=== PATIENT | female | born 1985 | race African-American/Black ===

== ENCOUNTER 2018-10-23 20:30 | Observation (INO) | payer MEDICAID ==
[~2018-10-23] VITALS: Ht 167.6 cm; Wt 74.8 kg
[2018-10-23] MEDS ORDERED: FERR325T23 GT (21:35)
[2018-10-23] MEDS ORDERED: ASPI-1159 PO (21:35)
[2018-10-23] MEDS ORDERED: VIT1TABL86 PO (21:35)
[2018-10-23] MEDS ORDERED: PNV1TABL50 PO (21:35)
== END 2018-10-23 22:00 | disposition home or self-care (01) ==
LOC: 8 EST LDRP 20:30
PROVIDERS: ADMIT Obstetrics & Gynecology; ATTEND Obstetrics & Gynecology
DX: O36.8390 Maternal care for abnormalities of the fetal heart rate or rhythm, unspecified trimester, not applicable or unspecified (principal); Z3A.37 37 weeks gestation of pregnancy
CPT/HCPCS: G0378

== ENCOUNTER 2018-10-26 11:48 | Observation (INO) | payer MEDICAID ==
[~2018-10-26] VITALS: Ht 167.6 cm; Wt 74.8 kg
[~2018-10-26 11:48] MED LIST: ASPI-1159 PO; FERR325T23 GT; PNV1TABL50 PO; VIT1TABL86 PO
== END 2018-10-26 14:25 | disposition home or self-care (01) ==
LOC: 8 EST LDRP 11:48
PROVIDERS: ADMIT Obstetrics & Gynecology; ATTEND Obstetrics & Gynecology
DX: O30.003 Twin pregnancy, unspecified number of placenta and unspecified number of amniotic sacs, third trimester (principal); Z3A.37 37 weeks gestation of pregnancy
CPT/HCPCS: 59025; 76815; 76818; 99281; G0378

== ENCOUNTER 2018-11-03 12:33 | Observation (INO) | payer MEDICAID ==
[2018-11-03] MEDS ORDERED: PREN1TAB78 MT (13:10)
== END 2018-11-03 15:30 | disposition home or self-care (01) ==
LOC: 8 EST LDRP 12:33
PROVIDERS: ADMIT Obstetrics & Gynecology; ATTEND Obstetrics & Gynecology
DX: O30.003 Twin pregnancy, unspecified number of placenta and unspecified number of amniotic sacs, third trimester (principal); Z3A.37 37 weeks gestation of pregnancy
CPT/HCPCS: 59025; 76805; 76810; 76815; 76818; G0378

== ENCOUNTER 2018-11-12 14:34 | Emergency (ER) | payer SELFPAY ==
[~2018-11-12] VITALS: Ht 167.6 cm; Wt 59.0 kg
[2018-11-12] MEDS ORDERED: LABETALOL 5MG/ML SYR 20 MG/4 ML SYRINGE IV ONE (17:00)
[2018-11-12] MEDS ORDERED: LABETALOL HCL 100MG TABLET PO ONE (17:00)
[2018-11-12 18:28] LABS: CLARITY URINE CLEAR (CLEAR); COLOR URINE YELLOW (YELLOW); KETONES URINE NEGATIVE (NEGATIVE); LEUKOCYTE ESTERASE URINE 1+ (NEGATIVE); NITRITE URINE NEGATIVE (NEGATIVE); OCCULT BLOOD URINE 3+ (NEGATIVE); PROTEIN URINE NEGATIVE (NEGATIVE); SPECIFIC GRAVITY URINE 1.027 (1.005-1.030); UROBILINOGEN URINE 0.2 E.U./dL (0.2-1.0)
[2018-11-12 18:30] VITALS: BP 132/76
== END 2018-11-12 18:42 | disposition home or self-care (01) ==
LOC: ER 14:34
DX: O13.5 Gestational [pregnancy-induced] hypertension without significant proteinuria, complicating the puerperium (principal); Z98.890 Other specified postprocedural states; Z88.6 Allergy status to analgesic agent; Z79.899 Other long term (current) drug therapy
CPT/HCPCS: 81003; 96374; 99283; J3490; Z7610